=== PATIENT | female | born 1975 | race Caucasian/White ===

== ENCOUNTER 2017-08-22 18:31 | Inpatient (IN) | payer OTHER ==
[~2017-08-22] VITALS: Ht 160 cm; Wt 78.6 kg
[2017-08-25] MEDS ORDERED: LACTATED RINGERS 1,000 ML IV SCH (19:14)
[2017-08-25] MEDS ORDERED: OXYTOCIN 30U/ 0.9% NaCL 500ML 500 ML IV ONE (19:14)
[2017-08-25 19:25] VITALS: BP 135/80
[2017-08-25] MEDS ORDERED: PLEASE ENTER ALLERGIES MC SCH (19:30)
[2017-08-25] MEDS ORDERED: FENTANYL PF 100 MCG/2ML IV PRN (19:30)
[2017-08-25] MEDS ORDERED: PLEASE ENTER HEIGHT AND WEIGHT MC SCH (19:30)
[2017-08-25] MEDS ORDERED: ONDANSETRON 2MG/ML, 2ML IVPush PRN (19:30)
[2017-08-25] MEDS ORDERED: PREN-3 PO (19:36)
[2017-08-25] MEDS ORDERED: VIT1TABL3 PO (19:37)
[2017-08-25] MEDS ORDERED: CA C1TAB60 PO (19:37)
[2017-08-25] MEDS ORDERED: OMEG-76 PO (19:37)
[2017-08-25 19:50] LABS: BASOPHILS # (AUTO) 0.03 x10^3/uL (0-0.1); BASOPHILS % (AUTO) 0 % (0-1); EOSINOPHILS # (AUTO) 0.18 x10^3/uL (0-0.4); EOSINOPHILS % (AUTO) 2 % (1-7); LYMPHOCYTES # (AUTO) 2.13 x10^3/uL (1-3.4); LYMPHOCYTES % (AUTO) 21 % (22-44); MD NO; MEAN CORPUSCULAR HEMOGLOBIN 29.6 pg (27.0-34.8); MEAN CORPUSCULAR HGB CONC 33.8 g/dL (32.4-35.8); MEAN CORPUSCULAR VOLUME 87.6 fL (80-100); MEAN PLATELET VOLUME 10.3 fL (7.4-10.4); MONOCYTES # (AUTO) 0.89 x10^3/uL (0.2-0.8); MONOCYTES % (AUTO) 9 % (2-9); NEUTROPHILS # (AUTO) 6.94 x10^3/uL (1.8-6.8); NEUTROPHILS % (AUTO) 68 % (42-75); PLATELET COUNT 159 x10^3/uL (130-400); RED BLOOD COUNT 4.15 x10^6/uL (3.82-5.3); RED CELL DISTRIBUTION WIDTH 13.9 % (9.6-15.2)
[2017-08-25] MEDS ORDERED: NEWBORN KIT ONE (20:19)
[2017-08-25] MEDS ORDERED: OXYTOCIN 30U/ 0.9% NaCL 500ML 500 ML ONE (20:19)
[2017-08-25] MEDS ORDERED: VALACYCLOVIR 500MG TABLET PO SCH (22:00)
[2017-08-25] MEDS ORDERED: MISOPROSTOL 25 MCG TABLET PO PRN (22:30)
[2017-08-25] MEDS ORDERED: MISOPROSTOL 25 MCG TABLET ONE (23:02)
[2017-08-25] MEDS: VALACYCLOVIR 500MG TABLET PO SCH (23:09)
[2017-08-26] MEDS ORDERED: FENTANYL PF 100 MCG/2ML ONE ×2 (12:41→14:05)
[2017-08-26] MEDS: FENTANYL PF 100 MCG/2ML IVPush PRN ×2 (12:45→14:14)
[2017-08-26] MEDS ORDERED: VALACYCLOVIR 500MG TABLET ONE ×2 (12:54→21:33)
[2017-08-26] MEDS: VALACYCLOVIR 500MG TABLET PO SCH ×2 (12:58→21:35)
[2017-08-26] MEDS ORDERED: FENTANYL/BUPIV./NS/PF 250 ML EPIDCONT SCH ×2 (14:08→16:55)
[2017-08-26] MEDS ORDERED: FENTANYL PF 500 MCG, BUPIVACAINE/PF 0.5%, 30ML 62.5 ML in SODIUM CHLORIDE 0.9% 177.5 ML EPIDCONT SCH ×2 (14:30→17:30)
[2017-08-26] MEDS ORDERED: EPHEDRINE 50 MG/ML, 1ML ONE (16:20)
[2017-08-26] MEDS ORDERED: LACTATED RINGERS 1,000 ML IV SCH (16:55)
[2017-08-26] MEDS ORDERED: LACTATED RINGERS 1,000 ML IVBOLUS PRN (17:00)
[2017-08-26] MEDS ORDERED: EPHEDRINE 50 MG/ML, 1ML IVPush PRN (17:00)
[2017-08-26] MEDS ORDERED: NALOXONE 0.4 MG/ML, 1ML IVPush PRN (17:00)
[2017-08-26] MEDS ORDERED: ONDANSETRON 2MG/ML, 2ML IVPush PRN (17:00)
[2017-08-26] MEDS ORDERED: DIPHENHYDRAMINE 50 MG/ML, 1ML IVPush PRN (17:00)
[2017-08-26] MEDS ORDERED: OXYTOCIN 30U/ 0.9% NaCL 500ML 500 ML IV PRN (17:27)
[2017-08-26 19:22] VITALS: BP 144/82
[2017-08-27] MEDS ORDERED: FENTANYL PF 100 MCG/2ML ONE ×3 (00:09→19:20)
[2017-08-27] MEDS ORDERED: ONDANSETRON 2MG/ML, 2ML ONE ×2 (00:10→16:48)
[2017-08-27] MEDS ORDERED: ACETAMINOPHEN 500 MG TABLET ONE (02:08)
[2017-08-27] MEDS ORDERED: CEFAZOLIN PMX 2GM/50ML 50 ML IV SCH (02:30)
[2017-08-27] MEDS ORDERED: PHARMACOKINETIC MONITORING MC PRN (02:30)
[2017-08-27] MEDS ORDERED: GENTAMICIN PER PHARMACY MC PRN (02:30)
[2017-08-27] MEDS ORDERED: ACETAMINOPHEN 500 MG TABLET PO ONE (02:30)
[2017-08-27 02:36] LABS: MICROSCOPIC INDICATED
[2017-08-27 02:38] LABS: MEAN CORPUSCULAR HEMOGLOBIN 29.8 pg (27.0-34.8); MEAN CORPUSCULAR HGB CONC 33.7 g/dL (32.4-35.8); MEAN CORPUSCULAR VOLUME 88.3 fL (80-100); MEAN PLATELET VOLUME 10.2 fL (7.4-10.4); PLATELET COUNT 149 x10^3/uL (130-400); RED CELL DISTRIBUTION WIDTH 13.6 % (9.6-15.2)
[2017-08-27 02:41] LABS: ALANINE AMINOTRANSFERASE 18 U/L (12-78); ALBUMIN 2.4 g/dL (3.4-5.0); ANION GAP 10 mmol/L (5-15); CALCIUM 8.4 mg/dL (8.5-10.1); CHLORIDE 108 mmol/L (98-107); CREATININE 0.76 mg/dL (0.55-1.02)
[2017-08-27 02:42] LABS: BILIRUBIN, DIRECT < 0.1 mg/dL (0.1-0.2)
[2017-08-27 02:43] LABS: ALKALINE PHOSPHATASE 130 U/L (45-117); BILIRUBIN,TOTAL 0.4 mg/dL (0.2-1.0); TOTAL PROTEIN 5.7 g/dL (6.4-8.2)
[2017-08-27 02:57] LABS: MD YES
[2017-08-27] MEDS ORDERED: SODIUM CITRATE/CITRIC ACID 30 ML UDC ONE (02:58)
[2017-08-27] MEDS ORDERED: METOCLOPRAMIDE 5 MG/ML, 2ML ONE (02:58)
[2017-08-27] MEDS ORDERED: GENTAMICIN 120 MG in SODIUM CHLORIDE 0.9% 50 ML IV ONE (03:00)
[2017-08-27] MEDS ORDERED: PHARMACOKINETIC CONSULTATION MC ONE (03:00)
[2017-08-27 03:02] LABS: <RBC MORPHOLOGY> NORMAL; BAND#(MANUAL) 0.44 x10^3/uL; BANDS%(MANUAL) 3 % (0-7); LYMPH#(MANUAL) 0.89 x10^3/uL (1-3.4); LYMPHS% (MANUAL) 6 % (22-44); METAMYELOCYTES% (MANUAL) 2 % (0-1); MYELOCYTES# (MANUAL) 0.15 x10^3/uL (0-0); MYELOCYTES% (MANUAL) 1 % (0-0); SEG#(MANUAL) 13.02 x10^3/uL (1.8-6.8); SEGS% (MANUAL) 88 % (42-75); TOXIC GRAN 1+
[2017-08-27 03:03] LABS: <PLATELET ESTIMATE> ADEQUATE; <PLT MORPHOLOGY> NORMAL PLT MORPH
[2017-08-27 04:36] LABS: CREATININE,URINE RANDOM 60.1 mg/dL
[2017-08-27] MEDS ORDERED: FENTANYL/BUPIV./NS/PF 250 ML EPIDCONT SCH (06:44)
[2017-08-27] MEDS: D5%-LACTATED RINGERS 1,000 ML IV SCH ×2 (08:20→16:15)
[2017-08-27] MEDS: AMPICILLIN 2 GM in SODIUM CHLORIDE 0.9% 100 ML IV SCH ×5 (08:35→23:00)
[2017-08-27] MEDS: GENTAMICIN 100 MG in SODIUM CHLORIDE 0.9% 50 ML IV SCH ×2 (12:10→18:51)
[2017-08-27] MEDS ORDERED: ACETAMINOPHEN 325 MG TABLET ONE (13:38)
[2017-08-27] MEDS ORDERED: VALACYCLOVIR 500MG TABLET ONE (13:39)
[2017-08-27] MEDS: VALACYCLOVIR 500MG TABLET PO SCH (13:40)
[2017-08-27] MEDS ORDERED: ACETAMINOPHEN 325 MG TABLET PO PRN (14:00)
[2017-08-27] MEDS ORDERED: ERYTHROMYCIN 500 MG in SODIUM CHLORIDE 0.9% 100 ML IV ONE (15:30)
[2017-08-27] MEDS ORDERED: AZITHROMYCIN 500 MG in SODIUM CHLORIDE 0.9% 250 ML IV ONE (16:30)
[2017-08-27] MEDS ORDERED: SODIUM CITRATE/CITRIC ACID 30 ML UDC PO ONE (16:30)
[2017-08-27] MEDS ORDERED: METOCLOPRAMIDE 5 MG/ML, 2ML IV ONE (16:30)
[2017-08-27] MEDS ORDERED: OXYTOCIN 10 UNITS/ML, 1ML ONE (16:48)
[2017-08-27] MEDS ORDERED: CEFAZOLIN 1,000 MG ONE (16:48)
[2017-08-27] MEDS ORDERED: HYDROmorphone 2 MG/ML, 1ML ONE (16:49)
[2017-08-27] MEDS ORDERED: SODIUM CHLORIDE 0.9% PF 10ML ONE ×2 (16:49)
[2017-08-27] MEDS ORDERED: LIDOCAINE-MPF 2% ,5ML ONE (16:53)
[2017-08-27] MEDS ORDERED: BUPIVACAINE/PF 0.5% ONE (17:50)
[2017-08-27] MEDS: OXYTOCIN 30U/ 0.9% NaCL 500ML 500 ML IV SCH (18:21)
[2017-08-27] MEDS: LACTATED RINGERS 1,000 ML IV SCH ×2 (18:21)
[2017-08-27] MEDS ORDERED: BISACODYL 10 MG SUPP PR PRN (18:30)
[2017-08-27] MEDS ORDERED: MISOPROSTOL 200 MCG TABLET SL PRN (18:30)
[2017-08-27] MEDS ORDERED: ONDANSETRON 2MG/ML, 2ML IV PRN (18:30)
[2017-08-27] MEDS ORDERED: OXYcodone/APAP 5/325MG TABLET PO PRN (18:30)
[2017-08-27] MEDS ORDERED: OXYcodone/APAP 5/325MG TABLET ONE (19:21)
[2017-08-27 20:05] VITALS: BP 128/77
[2017-08-27] MEDS: OXYcodone IR 5MG TABLET PO PRN (23:07)
[2017-08-28 00:30] VITALS: BP 124/69
[2017-08-28 01:22] LABS: MEAN CORPUSCULAR HEMOGLOBIN 29.7 pg (27.0-34.8); MEAN CORPUSCULAR HGB CONC 33.7 g/dL (32.4-35.8); MEAN CORPUSCULAR VOLUME 88.2 fL (80-100); MEAN PLATELET VOLUME 9.8 fL (7.4-10.4); PLATELET COUNT 141 x10^3/uL (130-400); RED BLOOD COUNT 3.58 x10^6/uL (3.82-5.3); RED CELL DISTRIBUTION WIDTH 14.2 % (9.6-15.2)
[2017-08-28 01:31] LABS: CREATININE 0.99 mg/dL (0.55-1.02)
[2017-08-28 01:37] LABS: MD YES
[2017-08-28 01:40] LABS: <RBC MORPHOLOGY> NORMAL; BAND#(MANUAL) 1.46 x10^3/uL; BANDS%(MANUAL) 6 % (0-7); LYMPH#(MANUAL) 1.46 x10^3/uL (1-3.4); LYMPHS% (MANUAL) 6 % (22-44); MONOS#(MANUAL) 0.97 x10^3/uL (0.3-2.7); MONOS% (MANUAL) 4 % (2-9); SEG#(MANUAL) 20.41 x10^3/uL (1.8-6.8); SEGS% (MANUAL) 84 % (42-75)
[2017-08-28 01:41] LABS: <PLATELET ESTIMATE> ADEQUATE; <PLT MORPHOLOGY> NORMAL PLT MORPH
[2017-08-28] MEDS: LACTATED RINGERS 1,000 ML IV SCH ×6 (02:39→19:11)
[2017-08-28] MEDS: AMPICILLIN 2 GM in SODIUM CHLORIDE 0.9% 100 ML IV SCH ×6 (02:39→23:32)
[2017-08-28] MEDS: OXYcodone IR 5MG TABLET PO PRN ×5 (03:21→20:01)
[2017-08-28] MEDS: GENTAMICIN 100 MG in SODIUM CHLORIDE 0.9% 50 ML IV SCH ×3 (04:09→20:01)
[2017-08-28 04:20] VITALS: BP 130/79
[2017-08-28] MEDS: OXYTOCIN 30U/ 0.9% NaCL 500ML 500 ML IV SCH ×2 (04:21→14:21)
[2017-08-28 07:30] VITALS: BP 136/75
[2017-08-28] MEDS: PRENATAL VIT/IRON/FA 1 EACH TABLET PO SCH (07:45)
[2017-08-28] MEDS: DOCUSATE 100 MG CAPSULE PO PRN ×2 (07:45→20:01)
[2017-08-28 11:37] VITALS: BP 133/78
[2017-08-28 23:55] VITALS: BP 123/76
[2017-08-29] MEDS: OXYcodone IR 5MG TABLET PO PRN ×6 (00:04→20:10)
[2017-08-29] MEDS: OXYTOCIN 30U/ 0.9% NaCL 500ML 500 ML IV SCH ×2 (00:21→10:21)
[2017-08-29] MEDS: LACTATED RINGERS 1,000 ML IV SCH ×3 (02:21→10:21)
[2017-08-29] MEDS: AMPICILLIN 2 GM in SODIUM CHLORIDE 0.9% 100 ML IV SCH ×3 (03:06→11:55)
[2017-08-29] MEDS: GENTAMICIN 100 MG in SODIUM CHLORIDE 0.9% 50 ML IV SCH ×2 (03:55→12:00)
[2017-08-29 05:00] VITALS: BP 136/81
[2017-08-29] MEDS: PRENATAL VIT/IRON/FA 1 EACH TABLET PO SCH (08:08)
[2017-08-29] MEDS: DOCUSATE 100 MG CAPSULE PO PRN (08:08)
[2017-08-29 08:20] VITALS: BP 141/79
[2017-08-29 12:05] VITALS: BP 143/89
[2017-08-29] MEDS: SIMETHICONE 80 MG CHEW TAB PO PRN (13:11)
[2017-08-29 13:29] LABS: MEAN CORPUSCULAR HEMOGLOBIN 30.1 pg (27.0-34.8); MEAN CORPUSCULAR HGB CONC 33.8 g/dL (32.4-35.8); MEAN CORPUSCULAR VOLUME 88.9 fL (80-100); MEAN PLATELET VOLUME 9.1 fL (7.4-10.4); PLATELET COUNT 214 x10^3/uL (130-400); RED BLOOD COUNT 3.43 x10^6/uL (3.82-5.3); RED CELL DISTRIBUTION WIDTH 14.3 % (9.6-15.2)
[2017-08-29 13:33] LABS: ALBUMIN 1.9 g/dL (3.4-5.0); ANION GAP 6 mmol/L (5-15); CALCIUM 8.5 mg/dL (8.5-10.1); CHLORIDE 107 mmol/L (98-107)
[2017-08-29 13:37] LABS: ALANINE AMINOTRANSFERASE 13 U/L (12-78); ALKALINE PHOSPHATASE 91 U/L (45-117); BILIRUBIN,TOTAL 0.4 mg/dL (0.2-1.0); CREATININE 0.83 mg/dL (0.55-1.02); TOTAL PROTEIN 4.9 g/dL (6.4-8.2)
[2017-08-29 13:47] LABS: MD YES
[2017-08-29 13:48] LABS: <RBC MORPHOLOGY> NORMAL; BAND#(MANUAL) 1.24 x10^3/uL; BANDS%(MANUAL) 8 % (0-7); BASOS#(MANUAL) 0.16 x10^3/uL (0-0.1); BASOS% (MANUAL) 1 % (0-1); EOS#(MANUAL) 0.31 x10^3/uL (0.0-0.4); EOS% (MANUAL) 2 % (1-7); LYMPHS% (MANUAL) 9 % (22-44); MONOS#(MANUAL) 0.31 x10^3/uL (0.3-2.7); MONOS% (MANUAL) 2 % (2-9); SEG#(MANUAL) 12.09 x10^3/uL (1.8-6.8); SEGS% (MANUAL) 78 % (42-75)
[2017-08-29 13:49] LABS: <PLATELET ESTIMATE> ADEQUATE; <PLT MORPHOLOGY> NORMAL PLT MORPH
[2017-08-29 16:30] VITALS: BP 136/79
[2017-08-29 20:00] VITALS: BP 153/87
[2017-08-30] MEDS: OXYcodone IR 5MG TABLET PO PRN ×7 (00:10→22:46)
[2017-08-30] MEDS: SIMETHICONE 80 MG CHEW TAB PO PRN ×5 (00:22→22:45)
[2017-08-30 04:26] VITALS: BP 141/79
[2017-08-30 08:18] VITALS: BP_SYST 135; BP_SYST 145; BP_DIAS 88; BP_DIAS 91
[2017-08-30] MEDS: PRENATAL VIT/IRON/FA 1 EACH TABLET PO SCH (08:36)
[2017-08-30] MEDS: DOCUSATE 100 MG CAPSULE PO PRN ×2 (08:37→20:41)
[2017-08-30 12:39] VITALS: BP 155/95
[2017-08-30] MEDS ORDERED: niFEDipine ER 30 MG TABLET.ER ONE (13:19)
[2017-08-30] MEDS: ACETAMINOPHEN 325 MG TABLET PO PRN ×3 (13:24→20:40)
[2017-08-30 16:21] VITALS: BP 114/77
[2017-08-30 19:15] VITALS: BP 122/73
[2017-08-31 01:00] VITALS: BP 135/89
[2017-08-31] MEDS: ACETAMINOPHEN 325 MG TABLET PO PRN ×2 (02:47→08:18)
[2017-08-31] MEDS: OXYcodone IR 5MG TABLET PO PRN ×2 (02:48→08:20)
[2017-08-31 05:00] VITALS: BP 127/79
[2017-08-31] MEDS: SIMETHICONE 80 MG CHEW TAB PO PRN ×2 (05:24→08:18)
[2017-08-31] MEDS ORDERED: DOCU-131 PO (07:29)
[2017-08-31] MEDS ORDERED: OXYC-302 PO (07:29)
[2017-08-31] MEDS ORDERED: SIME80TA16 PO (07:35)
[2017-08-31] MEDS ORDERED: NIFE30TA2 PO (07:36)
[2017-08-31 08:00] VITALS: BP 133/73
[2017-08-31] MEDS: PRENATAL VIT/IRON/FA 1 EACH TABLET PO SCH (08:18)
[2017-08-31] MEDS: DOCUSATE 100 MG CAPSULE PO PRN (08:18)
[2017-08-31] MEDS ORDERED: niFEDipine ER 30 MG TABLET.ER PO SCH (09:00)
== END 2017-08-31 09:40 | disposition home or self-care (01) | DRG 765 ==
LOC: LDIP 08-25 19:11 → 2NW 08-27 20:10
PROVIDERS: ADMIT Obstetrics & Gynecology Maternal & Fetal Medicine; ATTEND Obstetrics & Gynecology Maternal & Fetal Medicine
PROC: 10D00Z1 Extraction of Products of Conception, Low, Open Approach (ICD-10-PCS; principal; 2017-08-27)
DX: O35.9XX0 Maternal care for (suspected) fetal abnormality and damage, unspecified, not applicable or unspecified (principal); O41.1230 Chorioamnionitis, third trimester, not applicable or unspecified; Z37.0 Single live birth; O14.94 Unspecified pre-eclampsia, complicating childbirth; O62.2 Other uterine inertia; Z3A.39 39 weeks gestation of pregnancy; Z87.891 Personal history of nicotine dependence; Z88.8 Allergy status to other drugs, medicaments and biological substances
CPT/HCPCS: 36415; J7121; 80053; 80170; 81001; 82248; 82565; 82570; 82803; 84156; 84520; 84550; 85025; 86850; 86900; 87040; 87070; 87075; 87205; 88305; 89060; J0290; J0456; J0690; J1170; J2405; J3010; J3490; J1580; J2590; J2765; J7050; J7120; Q0114